=== PATIENT | male | born 1985 | race Two or more races ===

== ENCOUNTER → 2018-03-13 | Emergency (ER) | payer SELFPAY ==
[~2018-03-13] MED LIST: PIPERACILLIN/TAZOBACTAM/D5W 50 ML IV ONE
--- NOTE | 2018-03-13 18:15 | NUR ---
NOT IN WAITING ROOM
== END | disposition left against medical advice (07) ==
LOC: ER 18:09
DX: Z53.21 Procedure and treatment not carried out due to patient leaving prior to being seen by health care provider (principal)